=== PATIENT | male | born 1965 | race American Indian/Alaskan Native ===

== ENCOUNTER 2019-04-22 10:38 | Emergency (ER) | payer MEDICAID, OTHER ==
--- NOTE | 2019-04-22 12:26 | XRay Report ---
Left shoulder, 3 views INDICATION: Left shoulder pain. COMPARISON: None. IMPRESSION: Moderate to severe osteoarthritic changes are identified at the glenohumeral joint and A C joint. There is no evidence for fracture, dislocation, ligamentous injury or bone lesion. Soft tis sues are unremarkable. Signer Name: Keith Kunz Jr, MD Signed: 04/22/2019 12:22 PM Workstation Name: [id number]
[2019-04-22 12:47] LABS: Basophils # (Auto) 0.1 K/mm3 (0.0-0.1); Basophils % (Auto) 0.8 % (0.0-1.8); Eosinophils # (Auto) 0.1 K/mm3 (0.0-0.4); Eosinophils % (Auto) 0.8 % (0.0-4.3); Hematocrit 40.5 % (35.5-45.6); Hemoglobin 13.6 gm/dl (11.8-15.2); Lymphocytes # (Auto) 2.2 K/mm3 (1.2-5.4); Mean Corpuscular HGB Conc 34 % (32-34); Mean Corpuscular Volume 79 fl (84-94); Monocytes # (Auto) 0.3 K/mm3 (0.0-0.8); Monocytes % (Auto) 2.5 % (0.0-7.3); Platelet Count 235 K/mm3 (140-440); Red Cell Distribution Width 16.5 % (13.2-15.2)
[2019-04-22 12:54] LABS: INR 1.03 (0.87-1.13)
[2019-04-22 12:56] LABS: Partial Thromboplastin Time 30.7 Sec. (24.2-36.6)
--- NOTE | 2019-04-22 12:59 | XRay Report ---
CHEST 1 VIEW 04/22/2019 12:00 PM INDICATION / CLINICAL INFORMATION: chest pain. COMPARISON: None available. FINDINGS: SUPPORT DEVICES: None. HEART / MEDIASTINUM: No significant abnormality. LUNGS / PLEURA: No significant pulmonary or pleural abnormality. No pneumothorax. ADDITIONAL FINDINGS: Advanced DJD in both shoulders noted. IMPRESSION: 1. No acute findings. Signer Name: Gerardo Mcfadden MD Signed: 04/22/2019 12:55 PM Workstation Name: [id number]
[2019-04-22 13:22] LABS: Alanine Aminotransferase 7 units/L (7-56); Albumin 3.6 g/dL (3.9-5); BUN/Creatinine Ratio 15; Blood Urea Nitrogen 12 mg/dL (9-20); Calcium 8.9 mg/dL (8.4-10.2); Hemolysis Index 25
[2019-04-22 14:10] LABS: Bilirubin,Urine NEG (Negative); Blood,Urine NEG (Negative); Color,Urine Straw (Yellow); Mucus,Urine FEW /HPF; Protein,Urine <15 mg/dL mg/dL (Negative); WBC,Urine < 1.0 /HPF (0.0-6.0)
--- NOTE | 2019-04-22 14:10 | Cat Scan Report ---
CT HEAD WITHOUT CONTRAST INDICATION / CLINICAL INFORMATION: weakness. TECHNIQUE: Axial imaging performed from the skull apex through the skull base without the use of cont rast. Sagittal and coronal reformatted images. All CT scans at this location are performed using CT dose reduction for ALARA by means of automated exposure control. COMPARISON: None available. FINDINGS: CEREBRAL PARENCHYMA: No significant abnormality. No acute territorial infarct. HEMORRHAGE: None. EXTRA-AXIAL SPACES: Normal in size and morphology for the patient's age. VENTRICULAR SYSTEM: Normal in size and morphology for the patient's age. MIDLINE SHIFT OR HERNIATION: None. CEREBELLUM / BRAINSTEM: No significant abnormality. CALVARIUM: No significant abnormality. ORBITS: Chronic medial left orbital wall fracture is identified. The remaining orbital contents are u nremarkable. PARANASAL SINUSES / MASTOID AIR CELLS: Normal as visualized. SOFT TISSUES of HEAD: No significant abnormality. ADDITIONAL FINDINGS: None. IMPRESSION: No acute intracranial abnormality. Chronic left medial orbital wall fracture. Signer Name: Keith Kunz Jr, MD Signed: 04/22/2019 2:06 PM Workstation Name: [id number]
--- NOTE | 2019-04-22 14:17 | Cat Scan Report ---
CT CHEST WITH CONTRAST INDICATION / CLINICAL INFORMATION: chest nodule 50 lb weight loss. TECHNIQUE: Axial CT images were obtained through the chest after 100 cc Omnipaque 350 IV contrast. Sagittal and coronal reformatted images. All CT scans at this location are performed using CT dose reduction for A CORRINE by means of automated exposure control. COMPARISON: None available. FINDINGS: HEART: No significant abnormality. THORACIC AORTA: No significant abnormality. MEDIASTINUM and MEENA: No significant abnormality. LUNGS: No acute air space or interstitial disease. PLEURA: No significant pleural effusion. No pneumothorax. SKELETAL SYSTEM: No significant abnormality. UPPER ABDOMEN: No significant abnormality. ADDITIONAL FINDINGS: None. IMPRESSION: No significant abnormality. Signer Name: Keith Kunz Jr, MD Signed: 04/22/2019 2:13 PM Workstation Name: [id number]
[2019-04-22 14:19] LABS: Amphetamine Screen,Urine PRESUMPTIVE NEGATIVE; Benzodiazepines Screen,Urine PRESUMPTIVE NEGATIVE; Cannabinoid Screen,Urine PRESUMPTIVE NEGATIVE; Methadone Screen,Urine PRESUMPTIVE NEGATIVE; Opiate Screen,Urine PRESUMPTIVE NEGATIVE
[2019-04-22 14:22] VITALS: BP 138/98
[2019-04-22 14:35] LABS: Cocaine Screen,Urine PRESUMPTIVE POSITIVE
--- NOTE | 2019-04-22 15:03 | Emergency Department Report ---
ED General Adult HPI - General Chief complaint: Neuro Symptoms/Deficit Stated complaint: ENTIRE LT SIDE NUMB Time Seen by Provider: 04/22/19 11:47 Source: patient Mode of arrival: Ambulatory Limitations: No Limitations - History of Present Illness Initial comments: She presents to the emergency department with a chief complaint of not being able to move his left arm for approximately a week. Patient also complains of left arm and shoulder pain as well. 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 Patient also complains of diffuse weakness that has been present for over the last 6 months as well as a 50 pound weight loss in that timeframe as well. Patient denies any chest pain, shortness breath, or headache. -: Gradual Location: upper extremity Radiation: non-radiation Severity scale (0 -10): 8 Quality: aching Consistency: constant Improves with: rest Worsens with: movement Associated Symptoms: denies other symptoms Treatments Prior to Arrival: none - Related Data Previous Rx's Medication Instructions Recorded Last Taken Type Ibuprofen [Motrin 800 MG tab] 800 mg PO Q8H #45 tablet 02/21/15 Unknown Rx Prednisone [Prednisone 10 mg 10 mg PO .TAPER #1 tab.ds.pk 02/21/15 Unknown Rx (6-Day Pack, 21 Tabs)] traMADol [Ultram 50 MG tab] 50 mg PO Q6HR PRN #20 tablet 02/21/15 Unknown Rx Naproxen [Naprosyn] 500 mg PO BID #20 tablet 04/22/19 Unknown Rx Naproxen [Naprosyn] 500 mg PO BID PRN #20 tablet 04/22/19 Unknown Rx Allergies Allergy/AdvReac Type Severity Reaction Status Date / Time No Known Allergies Allergy Unverified 02/21/15 09:46 ED Review of Systems ROS: Stated complaint: ENTIRE LT SIDE NUMB Other details as noted in HPI Comment: All other systems reviewed and negative Constitutional: denies: chills, fever Eyes: denies: eye pain, eye discharge, vision change ENT: denies: ear pain, throat pain Respiratory: denies: cough, shortness of breath, wheezing Cardiovascular: denies: chest pain, palpitations Endocrine: no symptoms reported Gastrointestinal: denies: abdominal pain, nausea, diarrhea Genitourinary: denies: urgency, dysuria Musculoskeletal: denies: back pain, joint swelling, arthralgia Skin: denies: rash, lesions Neurological: weakness. denies: headache, paresthesias Psychiatric: denies: anxiety, depression Hematological/Lymphatic: denies: easy bleeding, easy bruising ED Past Medical Hx - Past Medical History Previous Medical History?: Yes Hx Arthritis: Yes - Surgical History Past Surgical History?: Yes Additional Surgical History: skin graft left arm. right shoulder surgery - Social History Smoking Status: Current Some Day Smoker Substance Use Type: None - Medications Home Medications: Home Medications Medication Instructions Recorded Confirmed Last Taken Type Ibuprofen [Motrin 800 MG tab] 800 mg PO Q8H #45 tablet 02/21/15 Unknown Rx Prednisone [Prednisone 10 mg 10 mg PO .TAPER #1 tab.ds.pk 02/21/15 Unknown Rx (6-Day Pack, 21 Tabs)] traMADol [Ultram 50 MG tab] 50 mg PO Q6HR PRN #20 tablet 02/21/15 Unknown Rx Naproxen [Naprosyn] 500 mg PO BID #20 tablet 04/22/19 Unknown Rx Naproxen [Naprosyn] 500 mg PO BID PRN #20 tablet 04/22/19 Unknown Rx ED Physical Exam - General Limitations: No Limitations General appearance: alert, in no apparent distress - Head Head exam: Present: atraumatic, normocephalic - Eye Eye exam: Present: normal appearance, PERRL, EOMI - ENT ENT exam: Present: mucous membranes moist - Neck Neck exam: Present: normal inspection - Respiratory Respiratory exam: Present: normal lung sounds bilaterally, chest wall tenderness (left chest wall with palpable lesion that is not fixed ). Absent: respiratory distress - Cardiovascular Cardiovascular Exam: Present: regular rate, normal rhythm. Absent: systolic murmur, diastolic murmur, rubs, gallop - GI/Abdominal GI/Abdominal exam: Present: soft, normal bowel sounds - Rectal Rectal exam: Present: deferred - Extremities Exam Extremities exam: Present: normal inspection, other (Left shoulder LROM due to pain ) - Back Exam Back exam: Present: normal inspection - Neurological Exam Neurological exam: Present: alert, oriented X3, CN II-XII intact. Absent: motor sensory deficit - Psychiatric Psychiatric exam: Present: normal affect, normal mood - Skin Skin exam: Present: warm, dry, intact, normal color. Absent: rash ED Course Vital Signs 08/03/0504/22/19 04/22/19 10:41 12:57 14:09 Temperature 97.5 F L 98.1 F 98.2 F Pulse Rate 69 67 65 Respiratory 18 17 18 Rate Blood Pressure 129/84 133/88 138/98 [Right] O2 Sat by Pulse 100 100 100 Oximetry ED Medical Decision Making - Lab Data Result diagrams: 04/22/19 12:25 04/22/19 12:25 Lab Results 04/22/19 04/22/19 04/22/19 Range/Units 12:25 12:25 12:25 WBC 12.8 H (4.5-11.0) K/mm3 RBC 5.10 H (3.65-5.03) M/mm3 Hgb 13.6 (11.8-15.2) gm/dl Hct 40.5 (35.5-45.6) % MCV 79 L (84-94) fl MCH 27 L (28-32) pg MCHC 34 (32-34) % RDW 16.5 H (13.2-15.2) % Plt Count 235 (140-440) K/mm3 Lymph % (Auto) 17.0 (13.4-35.0) % [place] % (Auto) 2.5 (0.0-7.3) % Eos % (Auto) 0.8 (0.0-4.3) % Baso % (Auto) 0.8 (0.0-1.8) % Lymph # 2.2 (1.2-5.4) K/mm3 [place] # 0.3 (0.0-0.8) K/mm3 Eos # 0.1 (0.0-0.4) K/mm3 Baso # 0.1 (0.0-0.1) K/mm3 Seg Neutrophils % 78.9 H (40.0-70.0) % Seg Neutrophils # 10.1 H (1.8-7.7) K/mm3 PT 13.2 (12.2-14.9) Sec. INR 1.03 (0.87-1.13) APTT 30.7 (24.2-36.6) Sec. Sodium 140 (137-145) mmol/L Potassium 4.3 (3.6-5.0) mmol/L Chloride 105.3 (98-107) mmol/L Carbon Dioxide 26 (22-30) mmol/L Anion Gap 13 mmol/L BUN 12 (9-20) mg/dL Creatinine 0.8 (0.8-1.5) mg/dL Estimated GFR > 60 ml/min BUN/Creatinine Ratio 15 % Glucose 84 (75-100) mg/dL Calcium 8.9 (8.4-10.2) mg/dL Total Bilirubin 0.20 (0.1-1.2) mg/dL AST 10 (5-40) units/L ALT 7 (7-56) units/L Alkaline Phosphatase 122 (35-129) units/L Troponin T (0.00-0.029) ng/mL NT-Pro-B Natriuret Pep (0-900) pg/mL Total Protein 7.6 (6.3-8.2) g/dL Albumin 3.6 L (3.9-5) g/dL Albumin/Globulin Ratio 0.9 % Urine Color (Yellow) Urine Turbidity (Clear) Urine pH (5.0-7.0) Ur Specific [place] (1.003-1.030) Urine Protein (Negative) mg/dL Urine Glucose (UA) (Negative) mg/dL Urine Ketones (Negative) mg/dL Urine Blood (Negative) Urine Nitrite (Negative) Urine Bilirubin (Negative) Urine Urobilinogen (<2.0) mg/dL Ur Leukocyte Esterase (Negative) Urine WBC (Auto) (0.0-6.0) /HPF Urine RBC (Auto) (0.0-6.0) /HPF Urine Mucus /HPF Urine Opiates Screen Urine Methadone Screen Ur Barbiturates Screen Ur Phencyclidine Scrn Ur Amphetamines Screen U Benzodiazepines Scrn Urine Cocaine Screen U Marijuana (THC) Screen Drugs of Abuse Note 04/22/19 04/22/19 04/22/19 Range/Units 12:25 13:59 13:59 WBC (4.5-11.0) K/mm3 RBC (3.65-5.03) M/mm3 Hgb (11.8-15.2) gm/dl Hct (35.5-45.6) % MCV (84-94) fl MCH (28-32) pg MCHC (32-34) % RDW (13.2-15.2) % Plt Count (140-440) K/mm3 Lymph % (Auto) (13.4-35.0) % [place] % (Auto) (0.0-7.3) % Eos % (Auto) (0.0-4.3) % Baso % (Auto) (0.0-1.8) % Lymph # (1.2-5.4) K/mm3 [place] # (0.0-0.8) K/mm3 Eos # (0.0-0.4) K/mm3 Baso # (0.0-0.1) K/mm3 Seg Neutrophils % (40.0-70.0) % Seg Neutrophils # (1.8-7.7) K/mm3 PT (12.2-14.9) Sec. INR (0.87-1.13) APTT (24.2-36.6) Sec. Sodium (137-145) mmol/L Potassium (3.6-5.0) mmol/L Chloride (98-107) mmol/L Carbon Dioxide (22-30) mmol/L Anion Gap mmol/L BUN (9-20) mg/dL Creatinine (0.8-1.5) mg/dL Estimated GFR ml/min BUN/Creatinine Ratio % Glucose (75-100) mg/dL Calcium (8.4-10.2) mg/dL Total Bilirubin (0.1-1.2) mg/dL AST (5-40) units/L ALT (7-56) units/L Alkaline Phosphatase (35-129) units/L Troponin T < 0.010 (0.00-0.029) ng/mL NT-Pro-B Natriuret Pep 98.68 (0-900) pg/mL Total Protein (6.3-8.2) g/dL Albumin (3.9-5) g/dL Albumin/Globulin Ratio % Urine Color Straw (Yellow) Urine Turbidity Clear (Clear) Urine pH 6.0 (5.0-7.0) Ur Specific [place] 1.010 (1.003-1.030) Urine Protein <15 mg/dl (Negative) mg/dL Urine Glucose (UA) Neg (Negative) mg/dL Urine Ketones Neg (Negative) mg/dL Urine Blood Neg (Negative) Urine Nitrite Neg (Negative) Urine Bilirubin Neg (Negative) Urine Urobilinogen 2.0 (<2.0) mg/dL Ur Leukocyte Esterase Neg (Negative) Urine WBC (Auto) < 1.0 (0.0-6.0) /HPF Urine RBC (Auto) 4.0 (0.0-6.0) /HPF Urine Mucus Few /HPF Urine Opiates Screen Presumptive negative Urine Methadone Screen Presumptive negative Ur Barbiturates Screen Presumptive negative Ur Phencyclidine Scrn Presumptive negative Ur Amphetamines Screen Presumptive negative U Benzodiazepines Scrn Presumptive negative Urine Cocaine Screen Presumptive positive U Marijuana (THC) Screen Presumptive negative Drugs of Abuse Note Disclamer - Radiology Data Radiology results: report reviewed - Medical Decision Making With a history of 50 pound weight loss within 6 months and continue weakness with findings of a mass on the left chest wall and evaluation was performed via CT of the chest for Pancoast tumor or subclavian steal. discussed results with the patient Critical care attestation.: If time is entered above; I have spent that time in minutes in the direct care of this critically ill patient, excluding procedure time. ED Disposition Clinical Impression: Weakness, Left upper arm pain, Arthritis Disposition: TO HOME OR SELFCARE Is pt being admited?: No Does the pt Need Aspirin: No Condition: Stable Instructions: Osteoarthritis (ED), Weakness (ED), Arthralgia (ED) Additional Instructions: return if worse Prescriptions: Naproxen [Naprosyn] 500 mg PO BID #20 tablet Naproxen [Naprosyn] 500 mg PO BID PRN #20 tablet PRN Reason: pain Referrals: MARK MARTINEZHILDALE MD ISABEL [Primary Care Provider] - 3-5 Days [facility], [Provider Group] - 3-5 Days [facility] [Provider Group] - 3-5 Days Time of Disposition: 15:03
== END 2019-04-22 15:50 | disposition home or self-care (01) ==
LOC: ED 10:38
DX: M13.88 Other specified arthritis, other site (principal)
CPT/HCPCS: 36415; 70450; 71045; 71260; 73030; 80053; 80307; 81001; 83880; 84484; 85025; 85610; 85730; 99284; Q9967

== ENCOUNTER 2022-01-12 07:15 | Observation (INO) | payer OTHER ==
[2022-01-12] MEDS ORDERED: ASPIRIN EC 325 MG TAB PO SCH (07:30)
[2022-01-12 08:39] LABS: Basophils # (Auto) 0.1 K/mm3 (0.0-0.1); Basophils % (Auto) 0.8 % (0.0-1.8); Eosinophils # (Auto) 0.1 K/mm3 (0.0-0.4); Eosinophils % (Auto) 1.5 % (0.0-4.3); Hematocrit 42.6 % (35.5-45.6); Hemoglobin 13.8 gm/dl (11.8-15.2); Lymphocytes # (Auto) 2.3 K/mm3 (1.2-5.4); Lymphocytes % (Auto) 27.3 % (13.4-35.0); Mean Corpuscular HGB Conc 32 % (32-34); Mean Corpuscular Volume 80 fl (84-94); Monocytes # (Auto) 0.6 K/mm3 (0.0-0.8); Monocytes % (Auto) 6.7 % (0.0-7.3); Platelet Count 264 K/mm3 (140-440); Red Blood Count 5.36 M/mm3 (3.65-5.03); Red Cell Distribution Width 15.2 % (13.2-15.2)
[2022-01-12] MEDS ORDERED: HEPARIN/NS 5000 UNIT/500ML 1,000 ML IR ONE (08:44)
[2022-01-12 08:51] LABS: INR 0.96 (0.87-1.13)
[2022-01-12 08:55] LABS: Blood Urea Nitrogen 18 mg/dL (9-20); Calcium 9.7 mg/dL (8.4-10.2); Hemolysis Index 1
[2022-01-12] MEDS: MIDAZOLAM 2 MG/2 ML INJ ONE ×3 (08:59→11:00)
[2022-01-12] MEDS ORDERED: SODIUM CHLORIDE 0.9% 500 ML 500 ML IV SCH (09:00)
[2022-01-12] MEDS: HEPARIN 10,000 UNITS/10 ML VIAL ONE ×2 (09:00→10:43)
[2022-01-12] MEDS: LIDOCAINE (1%) 10 MG/1 ML VIAL 20 ML MDV ONE ×2 (09:00→10:30)
[2022-01-12] MEDS: fentaNYL 100 MCG/2 ML INJ ONE ×3 (09:00→11:01)
[2022-01-12] MEDS: VERAPAMIL 5 MG/2 ML INJ ONE ×2 (09:01→21:29)
[2022-01-12] MEDS: NITROGLYCERIN SYRINGE 3 ML ONE ×2 (09:02→11:08)
[2022-01-12 09:07] LABS: BUN/Creatinine Ratio 26
[2022-01-12] MEDS ORDERED: ALUM-MAG HYDROXIDE-SIMETHICONE 200-200-20MG/5ML ORAL LIQD 30 ML ONE (11:10)
[2022-01-12] MEDS ORDERED: TICAGRELOR 90 MG TAB ONE (11:10)
[2022-01-12] MEDS ORDERED: HEPARIN 10,000 UNIT/1 ML VIAL ONE (11:24)
[2022-01-12] MEDS ORDERED: HEPARIN 10,000 UNITS/10 ML VIAL ONE (11:25)
[2022-01-12] MEDS ORDERED: ACETAMINOPHEN 325 MG TAB PO PRN ×2 (11:38→12:51)
[2022-01-12] MEDS ORDERED: ONDANSETRON 4 MG/2 ML INJ IV PRN ×2 (11:38→12:51)
[2022-01-12] MEDS ORDERED: ZOLPIDEM 5 MG TAB PO PRN (11:38)
[2022-01-12] MEDS ORDERED: SODIUM CHLORIDE 0.9% 1000 ML 1,000 ML IV SCH (11:45)
--- NOTE | 2022-01-12 11:50 | Cardiac Catherization Report ---
DATE OF SERVICE: 01/12/2022 CARDIAC CATHETERIZATION AND CORONARY ANGIOPLASTY REPORT REASON FOR PROCEDURE: The patient was referred for outpatient cardiac catheterization. INDICATION: Chest pain and abnormal thallium stress test. PROCEDURES: 1. Left heart catheterization. 2. Selective left and right coronary angiography. 3. Left ventricular angiography. 4. Coronary angioplasty and stenting of the mid left anterior descending artery. DESCRIPTION OF PROCEDURE: The patient was prepped and draped in a sterile fashion after informed consent. The right femoral artery was entered using Seldinger technique followed by placement of a 6-Danish sheath. Selective left and right coronary angiography was performed using #4 left Umu and a #4 right Umu. The right Umu was used for left ventricular angiography. FINDINGS: HEMODYNAMICS: Left ventricular end-diastolic pressure was 21, following coronary angiography. Ascending aortic pressure 155/96. There was no significant pressure gradient on pullback across the aortic valve. CORONARY ANGIOGRAPHY: The left main coronary artery was free of significant disease. There was a long, ulcerated, greater than 80% stenosis of the mid LAD just following the origin of a large mid diagonal branch. The LAD lesion had the appearance of an intrinsic, spontaneous and chronic dissection. A large ramus intermedius artery was free of significant disease. The circumflex artery and its obtuse marginal branches were free of significant disease. The right coronary artery was a relatively small caliber, but dominant vessel. There was a long segment of a chronic total mid right coronary occlusion. There was faint collateralization of the distal right coronary segments from the left coronary system. There was mild to moderate left ventricular systolic dysfunction, diffuse hypokinesis, left ventricular ejection fraction 40-45%. CORONARY ANGIOPLASTY: After review of the angiograms, we recommended ad hoc coronary intervention to the mid left anterior descending artery. We exchanged for a #3.5 XB guiding catheter advanced to the left coronary ostium. A 0.014 inch Whisper wire was able to be maneuvered through the complex irregular ulcerated spontaneous dissection lesion of the mid LAD. Following wire placement, we predilated the lesion using a 2.5 mm balloon catheter. We then deployed a 2.75 x 18 mm Resolute drug-eluting stent, covering the entire lesion, starting from just below the origin of the mid diagonal branch. Following stenting, there was an excellent angiographic result, zero residual stenosis and CELESTINO 3 flow down the LAD. There was no compromise of the origin of the mid diagonal branch. Procedure was well tolerated by the patient and there were no complications. The catheters and the sheaths were removed, hemostasis over the right femoral artery using an Angio-Seal device. He was returned to the postprocedure unit in stable condition. There were no complications. CONCLUSION: 1. Severe 2-vessel coronary artery disease. 2. Mild to moderate left ventricular dysfunction, ejection fraction 40-45%. 3. Successful ad hoc angioplasty and stenting of the mid LAD, excellent angiographic result following a 2.75 mm drug-eluting stent. 4. The chronic total occlusion of the right coronary artery, which is collateralized from the left coronary system will be recommended for medical therapy. TID: [id number] RECEIPT: [id number] MARICHUY
[2022-01-12] MEDS ORDERED: METOPROLOL TARTRATE 50 MG TAB ONE (11:53)
[2022-01-12] MEDS: traMADol 50 MG TAB PO PRN ×3 (12:00→22:50)
[2022-01-12] MEDS: METOPROLOL TARTRATE 25 MG TAB PO SCH ×2 (12:26→22:50)
[2022-01-12] MEDS ORDERED: HYDROcodone/ACETAMINOPHEN 5-325 MG TAB PO PRN (12:51)
[2022-01-12] MEDS: TICAGRELOR 90 MG TAB PO SCH (22:49)
[2022-01-13 06:03] LABS: Basophils # (Auto) 0.1 K/mm3 (0.0-0.1); Basophils % (Auto) 0.5 % (0.0-1.8); Eosinophils # (Auto) 0.1 K/mm3 (0.0-0.4); Eosinophils % (Auto) 1.1 % (0.0-4.3); Hematocrit 35.8 % (35.5-45.6); Hemoglobin 12.1 gm/dl (11.8-15.2); Lymphocytes # (Auto) 2.7 K/mm3 (1.2-5.4); Lymphocytes % (Auto) 25.8 % (13.4-35.0); Mean Corpuscular HGB Conc 34 % (32-34); Mean Corpuscular Volume 78 fl (84-94); Monocytes # (Auto) 0.5 K/mm3 (0.0-0.8); Monocytes % (Auto) 5.3 % (0.0-7.3); Platelet Count 248 K/mm3 (140-440); Red Blood Count 4.58 M/mm3 (3.65-5.03); Red Cell Distribution Width 14.8 % (13.2-15.2)
[2022-01-13 06:09] LABS: BUN/Creatinine Ratio 26; Blood Urea Nitrogen 23 mg/dL (9-20); Calcium 8.9 mg/dL (8.4-10.2); Hemolysis Index 8
--- NOTE | 2022-01-13 07:17 | Discharge Summary ---
Short Stay Discharge Plan Activity: advance as tolerated Weight Bearing Status: Partial Weight Bearing Diet: low fat, low cholesterol, low salt Wound: keep clean and dry Special Instructions: smoking cessation, no heavy lifting (3 days) Follow up with: MATEUS HERMOSILLO MD [Primary Care Provider] - 7 Days FEMI RAMIREZ MD [Staff Physician] - 7 Days Prescriptions: Ticagrelor [Brilinta] 90 mg PO BID #30 tablet Aspirin EC [Halfprin EC] 81 mg PO QDAY #30 tablet. ISOSORBIDE MONOnitrate [Imdur ER] 30 mg PO DAILY #30 tab.er.24h AtorvaSTATin [Lipitor] 40 mg PO QHS #30 tab Metoprolol [Lopressor TAB] 25 mg PO BID #60 tablet
--- NOTE | 2022-01-13 08:29 | XRay Report ---
CHEST 1 VIEW 01/13/2022 7:48 AM INDICATION / CLINICAL INFORMATION: post pci. COMPARISON: None available. FINDINGS: SUPPORT DEVICES: None. HEART / MEDIASTINUM: No significant abnormality. LUNGS / PLEURA: No significant pulmonary or pleural abnormality. No pneumothorax. ADDITIONAL FINDINGS: Advanced DJD at the shoulders. IMPRESSION: No acute abnormality. Signer Name: Craig Shay MD Signed: 01/13/2022 8:25 AM Workstation Name: [id number]
[2022-01-13 09:11] VITALS: BP 118/83
[2022-01-13] MEDS: TICAGRELOR 90 MG TAB PO SCH (09:15)
[2022-01-13] MEDS: METOPROLOL TARTRATE 25 MG TAB PO SCH (09:16)
[2022-01-13] MEDS ORDERED: ASPIRIN 81 MG TAB CHEW PO SCH (10:00)
--- NOTE | 2022-01-13 17:09 | Electrocardiograph Report ---
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
--- NOTE | 2022-01-13 17:12 | Electrocardiograph Report ---
[facility] Test Date: 2022-01-12 Test Time: 12:04:17 Pat Name: MASOUD MINA Department: Room: A480 Gender: M Valver: LAUREN : 1965 Requested By: RIYA NICHOLE Order Number: [id number] Reading MD: Riya Nichole Measurements Intervals [place] Rate: 82 P: 70 SC: 127 QRS: -36 QRSD: 90 T: 4 QT: 387 QTc: 454 Interpretive Statements Sinus rhythm Inferior infarct, old Compared to ECG 01/12/2022 08:28:54 No significant changes Electronically Signed On 01-13-2022 17:12:14 EDT by Riya Nichole
--- NOTE | 2022-01-13 17:20 | Electrocardiograph Report ---
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
== END 2022-01-13 10:45 | disposition home or self-care (01) ==
LOC: CATHLABREC 07:15 → 4A 12:51
PROVIDERS: ADMIT Internal Medicine Cardiovascular Disease; ATTEND Internal Medicine Cardiovascular Disease
DX: I25.10 Atherosclerotic heart disease of native coronary artery without angina pectoris (principal); I10 Essential (primary) hypertension; R07.89 Other chest pain; R94.39 Abnormal result of other cardiovascular function study; M19.90 Unspecified osteoarthritis, unspecified site; Z79.899 Other long term (current) drug therapy; Z98.890 Other specified postprocedural states
CPT/HCPCS: 36415; 71045; 80048; 82962; 84484; 85025; 85610; 85730; 93005; 93458; C1725; C1760; C1769; C1874; C1887; C1894; C9600; G0378; J1644; J1815; J2250; J3010; J7040; 92928; Q9967